=== PATIENT | female | born 1965 | race Caucasian/White ===

== ENCOUNTER 2018-04-04 18:27 | Emergency (ER) | payer OTHER ==
[~2018-04-04] VITALS: Ht 160 cm; Wt 60.0 kg
[2018-04-04] MEDS ORDERED: LEVO25TA7 PO (18:35)
[2018-04-05] MEDS ORDERED: KETOROLAC 60MG/2ML VIAL IM ONE
[2018-04-05] MEDS ORDERED: CYCLOBENZAPRINE 10MG TABLET PO ONE
[2018-04-05 00:43] VITALS: BP 118/94
== END 2018-04-05 00:45 | disposition home or self-care (01) ==
LOC: ER 18:27
DX: S20.312A Abrasion of left front wall of thorax, initial encounter (principal); E89.0 Postprocedural hypothyroidism; V43.52XA Car driver injured in collision with other type car in traffic accident, initial encounter; W22.11XA Striking against or struck by driver side automobile airbag, initial encounter; Y93.89 Activity, other specified; Y92.488 Other paved roadways as the place of occurrence of the external cause
CPT/HCPCS: 81025; 96372; 99283; J1885